=== PATIENT | female | born 2000 | race Caucasian/White ===

== ENCOUNTER 2022-03-28 09:06 | Outpatient (CLI) | payer BC, SELFPAY ==
--- OUTSIDE RECORDS SUMMARY | 2022-03-28 09:38 | XMS_ITS | Clinical Summary ---
:1998 Author Organization [employer] [facility] [place] [address] Care Team Providers Name Role Phone Nithya Paulson Primary Care Provider Allergies Active Allergy Reactions Severity Noted Date Comments Amoxicillin Hives 12/30/2012 Medications Medication Sig Dispensed Refills Start Date End Date Status hydrocortisone 2.5% Apply to affected 28 g 3 03/18/2019 Active creamIndications: area on face Xerosis cutis twice daily for 1-2 weeks at a time. Repeat as needed for flares. triamcinolone Apply to affected 80 g 3 03/18/2019 Active (ARISTOCORT; KENALOG) areas 1-2x daily 0.1 % creamIndications: for up to 2 weeks Irritant contact at a time. dermatitis, unspecified cause drospirenone-ethinyl Take 1 Tablet by 84 Tablet 0 06/04/2021 Active estradioL ([place]) mouth once daily. 3-0.03 mg tabletIndications: Menorrhagia with irregular cycle, Oral contraceptive use Active Problems Problem Noted Date Menorrhagia with irregular cycle 11/09/2015 Viral warts, unspecified 01/09/2012 Sensorineural hearing loss, bilateral 04/30/2007 Immunizations Name Administration Dates Next Due DTaP 03/15/2002, 06/14/1999, 1998, 1998, 1998 HIB HbOC (HibTITER) 10/03/1999 HIB-HepB (Comvax) 01/09/1999, 1998, 1998 Hepatitis A (Peds) 06/07/2011, 11/16/2010 Human Papilloma Virus Vaccine 02/26/2012, 09/16/2011, 2011 Inactivated Polio Vaccine 1998, 1998 Influenza A (H1N1), Inactivated 04/26/2009 Influenza Virus, Unspecified 02/01/2020, 02/22/2011, 010, 01/31/2009 Influenza, IIV3 (Age 6-35 mos) 03/20/2013 Influenza, IIV3 (Age >=3 years) 02/01/2020 Influenza, IIV4 01/23/2021, 02/02/2019, 01/30/2018, 02/07/2017, 04/24/2016, 03/24/2015, 04/04/2014 MMR 03/22/2003, 03/15/1999 Meningococcal Vaccine (Menveo) 11/21/2015, 11/16/2010 Oral Polio Vaccine 03/15/2002, 1998 Tdap 02/02/2019, 11/16/2010 Tuberculin (PPD) 10/12/2019 Varicella Vaccine 11/16/2010, 03/15/1999 Family History Medical History Relation Name Comments Good Health Father Heart Disease Maternal Grandfather related to Lyme's disease Good Health Mother Relation Name Status Comments Father Maternal Grandfather Mother Social History Tobacco Use Types Packs/Day Years Used Date Never Smoker Smokeless Tobacco: Never Used Tobacco Cessation: Counseling Given: Yes Comments: no exposure Alcohol Use Standard Drinks/Week Comments No 0 (1 standard drink = 0.6 oz pure alcoho l) Sex Assigned at Date Recorded Not on file Obstetrics History Last Filed Vital Signs Vital Sign Reading Time Taken Comments Blood Pressure 118/62 01/23/2021 1:12 PM CDT Pulse 74 01/23/2021 1:12 PM CDT Temperature 36.9 ??C (98.4 ??F) 05/12/2019 10:40 AM SPINNER HYDRAULIC Respiratory Rate 16 01/30/2018 11:44 AM CDT Oxygen Saturation 98% 05/12/2019 10:40 AM SPINNER HYDRAULIC Inhaled Oxygen Concentration - - Weight 91.2 kg (201 lb) 01/23/2021 1:12 PM CDT Height 166.4 cm (5' 5.5) 02/18/2020 10:20 AM CDT Body Mass Index 32.94 02/18/2020 10:20 AM CDT Plan of Treatment Upcoming Encounters Date Type Specialty Care Team Description 04/15/2022 Office Visit Martha Hughes PA [address], [place] [address] (Wo rk) 04/15/2022 Office Visit Nithya Styles AuD [address], [place] [address] (Wo rk) Health Maintenance Due Date Last Done Comments COVID-19 vaccine series (#1) 1998 Chlamydia for age 16-24 2014 Hepatitis C screening for age 1103/12/2016 18-79 BMI (ht and wt on same day) for 02/17/2021 02/18/2020, 03/13, age 18+ 02/02/2019, Additional history exists Depression screening for age 12+ 02/17/2021 02/18/2020, , 01/30/2018, Additional history exists Influenza for age 9-49 01/10/2022 01/23/2021, 02/01/2020, 02/01/2020, Additional history exists Pap test for age 21-65 02/17/2023 02/18/2020 Tetanus booster 02/02/2029 02/02/2019, 11/16/2010 HPV series for age 9-26 Completed 02/26/2012, 02/26/2012, 09/16/2011, Additional history exists Tdap Completed 02/02/2019, 11/16/2010 Results Not on filefrom Last 3 Months Insurance Payer Benefit Plan / Subscriber ID Effective Dates Phone Addre ss Type Group BLUE CROSS BLUE CROSS OF [id number] 2015-Present [address] [address] [place] [address] [phone] (Home) [place] [id number] Care Teams Senior Infrastructure Architect Relationship Specialty Start Date End Date Nithya Paulson PA PCP - General Physician Mobile Tester 02/18/[address] [place] [address] [place] [phone]
[2022-03-28 11:27] LABS: Albumin* 4.3 g/dL (3.3-5.0); Chloride* 108 mmol/L (96-114)
[2022-03-28 11:28] LABS: Potassium* 4.3 mmol/L (3.6-5.1); Sodium* 141 mmol/L (135-149)
[2022-03-28 11:30] LABS: Bilirubin Total* 1.5 mg/dL (0.1-1.5); Carbon Dioxide* 27 mmol/L (20-32); Cholesterol* 180 mg/dL (90-199); Creatinine* 0.9 mg/dL (0.5-1.5); Estimated Glomerular Filt Rate 92 ml/min
[2022-03-28 11:31] LABS: Alkaline Phosphatase* 71 U/L (40-150); Aspartate Amino Transferase* 19 U/L (12-35); Blood Urea Nitrogen* 13 mg/dL (5-24); Calcium* 9.2 mg/dL (8.4-10.6); Glucose* 84 mg/dL (60-115); HDL Cholesterol* 52 mg/dL (>=50); LDL Cholesterol Calculated 116 mg/dL (<100); Total Protein* 7.2 g/dL (6.0-8.3); Triglycerides* 61 mg/dL (40-149)
[2022-03-28 11:47] LABS: Alanine Aminotransferase* 12 U/L (4-35)
[2022-03-28 12:22] LABS: Vitamin B12* 247 pg/mL (243-894)
== END 2022-03-28 09:07 | disposition home or self-care (01) ==
PROVIDERS: PCP Family Medicine; Visit Provider Family Medicine
DX: Z01.419 Encounter for gynecological examination (general) (routine) without abnormal findings (principal); R10.9 Unspecified abdominal pain; E78.5 Hyperlipidemia, unspecified; E53.8 Deficiency of other specified B group vitamins
CPT/HCPCS: 80053; 80061; 82607

== ENCOUNTER 2022-05-01 15:07 | Outpatient (CLI) | payer BC, SELFPAY ==
[2022-05-01 10:39] LABS: Vitamin B12* 360 pg/mL (243-894)
== END 2022-05-01 15:08 | disposition home or self-care (01) ==
PROVIDERS: PCP Family Medicine; Visit Provider Family Medicine
DX: E53.8 Deficiency of other specified B group vitamins (principal)
CPT/HCPCS: 82607

== ENCOUNTER 2023-01-09 10:22 | Outpatient (CLI) | payer BC, SELFPAY | END 2023-01-09 10:23 | disposition home or self-care (01) | PROVIDERS: PCP Family Medicine; Visit Provider Family Medicine | DX: N92.6 Irregular menstruation, unspecified (principal); R53.83 Other fatigue | CPT/HCPCS: 82728; 84443 ==

== ENCOUNTER 2023-01-28 14:21 | Outpatient (CLI) | payer BC, SELFPAY | END 2023-01-28 14:22 | disposition home or self-care (01) | PROVIDERS: PCP Family Medicine; Visit Provider Obstetrics & Gynecology | DX: N92.6 Irregular menstruation, unspecified (principal); E53.8 Deficiency of other specified B group vitamins; E78.5 Hyperlipidemia, unspecified; R10.2 Pelvic and perineal pain | CPT/HCPCS: 82947; 83525; 84146; 84270; 84402; 84403 ==

== ENCOUNTER 2023-02-06 16:42 | Outpatient (CLI) | payer BC, SELFPAY ==
--- NOTE | 2023-02-06 17:00 | CRLHL7_ITS ---
For Patients: As a result of the Century Cures Act, medical imaging exams and procedure reports are released immediately into your electronic medical record. You may view this report before your referring provider. If you have questions, please contact your health care provider. INDICATION: Irregular menstruation COMPARISON: none TECHNIQUE: 2D norman scale and color Doppler images were acquired of the pelvis using a transabdominal and transvaginal approach. FINDINGS: Sonographic images demonstrate a normal size and smooth outer contour of the uterus. Uterus measures 6.2 cm in length by 3.1 cm in AP diameter by 3.0 cm in transverse dimension. The myometrium has a normal uniform echotexture. The endometrial lining appears normal and measures 4 mm in composite thickness. The right ovary measures 3.3 x 1.5 x 2.0 cm in size and the left ovary measures 2.3 x 1.2 x 1.9 cm. The ovaries demonstrate normal arterial and venous blood flow on color Doppler analysis. There are no suspicious fluid collections within the cul-de-sac. IMPRESSION: Normal pelvic ultrasound. Dictated by Darío Zhao MD @ 02/10/2023 9:49:16 AM (Electronically Signed)
== END 2023-02-06 16:43 | disposition home or self-care (01) ==
PROVIDERS: PCP Family Medicine; Visit Provider Obstetrics & Gynecology
DX: N92.6 Irregular menstruation, unspecified (principal); R10.2 Pelvic and perineal pain
CPT/HCPCS: 76830; 76856

== ENCOUNTER 2023-09-09 16:12 | Outpatient (CLI) | payer BC, SELFPAY ==
--- OUTSIDE RECORDS SUMMARY | 2023-09-12 11:19 | XMS_ITS | Clinical Summary ---
Author Name Unknown Organization [facility] Address [place], [place] [address] Care Team Providers Care Motor Equipment Commanding Officer Name Role Phone Nithya Paulson Primary Care Provider [phone] Allergies Active Allergy Reactions Criticality Noted Date Comments Amoxicillin Hives 12/30/2012 Medications Medication Sig Dispensed Refills Start Date End Date Status hydrocortisone 2.5% creamIndications:Xeros is cutis Apply to affected area on face twice daily for 1-2 weeks at a time. Repeat as needed for flares. 28 g 3 03/18/2019 Active triamcinolone (ARISTOCORT; KENALOG) 0.1 % creamIndications:Irrit ant contact dermatitis, unspecified cause Apply to affected areas 1-2x daily for up to 2 weeks at a time. 80 g 3 03/18/2019 Active drospirenone-ethinyl estradioL ([place]) 3-0.03 mg tabletIndications:Concetta rrhagia with irregular cycle,Oral contraceptive use Take 1 Tablet by mouth once daily. 84 Tablet 06/04/2021 Active omeprazole (PRILOSEC) 20 mg Delayed-Release capsule Take 20 mg by mouth. 03/28/2022 Active Active Problems Problem Noted Date Diagnosed Date Menorrhagia with irregular cycle 11/09/2015 Viral warts, unspecified 01/09/2012 Sensorineural hearing loss, bilateral 04/30/2007 Immunizations Name Administration Dates Next Due DTaP 03/15/2002, 0,1998,1998, 1998 HIB HbOC (HibTITER) 10/03/1999 HIB-HepB (Comvax) 01/09/1999,1998,05/15/18 99 Hepatitis A (Peds) 06/07/2011,11/16/2010 Human Papilloma Virus Vaccine 02/26/2012, 012,06/07/2011 Inactivated Polio Vaccine 1998,1998 Influenza A (H1N1), Inactivated 04/26/2009 Influenza Virus, Unspecified 02/01/2020,02/23/20 11,03/22/2010,01/31/2009 Influenza, IIV3 (Age 6-35 mos) 03/20/2013 Influenza, IIV3 (Age >=3 years) 02/01/2020 Influenza, IIV4 01/23/2021, 9,01/30/2018,02/07/2017, 04/24/2016,03/24/2015,04/04/2014 MMR 03/22/2003,03/15/1999 Meningococcal Vaccine (Menveo) 11/21/2015,2010 Oral Polio Vaccine 03/15/2002,1998 Tdap 02/02/2019,11/16/2010 Tuberculin (PPD) 10/12/2019 Varicella Vaccine 11/16/2010,03/15/1999 Family History Medical History Relation Name Comments Good Health Father Heart Disease Maternal Grandfather relate d to Lyme's disease Good Health Mother Relation Name Status Comments Father Maternal Grandfather Mother Social History Tobacco Use Types Packs/Day Years Used Date Smoking Tobacco: Never Smokeless Tobacco: Never Tobacco Cessation:Counseling Given: Yes Comments:no exposure Alcohol Use Standard Drinks/Week Comments No 0 (1 standard drink = 0.6 oz pur e alcohol) PHQ-2 Answer Date Recorded PHQ-2 TOTAL SCORE 0 02/18/2020 Social Connections Answer Date Recorded Frequency of Communication with Friends and Fami ly Not on file 05/12/2021 Financial Resource Strain Answer Date R ecorded Difficulty of Paying Living Expenses Not on file 05/12/2021 Difficulty of Paying Living Expenses Not on file 05/12/2021 Sex and Gender Information Value Date Recorded Sex Assigned at Not on file Gender Identity Not on file Sexual Orientation Not on file Obstetrics History Last Filed Vital Signs Vital Sign Reading Time Taken Comments Blood Pressure 118/62 01/23/2021 1:12 PM CDT Pulse 74 01/23/2021 1:12 PM CDT Temperature 36.9 ??C (98.4 ??F) 05/12/2019 10:[address] Respiratory Rate 16 01/30/2018 11:44 AM CDT Oxygen Saturation 98% 05/12/2019 10:40 AM WOOD REPATCHER Inhaled Oxygen Concentration - - Weight 91.2 kg (201 lb) 01/23/2021 1:12 PM CDT Height 166.4 cm (5' 5.5) 02/18/2020 10:20 AM CD T Body Mass Index 32.94 02/18/2020 10:20 AM CDT Plan of Treatment Health Maintenance Due Date Last Done Comments HIV for age 15-65 2013 Hepatitis C screening for age 18-79 2016 BMI (ht and wt on same day) for age 18+ 02/17/2021 02/18/2020, 04/06/2019, 02/02/2019, Additional history exists Depression screening for age 12+ 02/17/2021 02/18/2020, 02/02/2019, 01/30/2018, Additional history exists COVID-19 vaccine series ( season) 2023 Influenza for age 9-49 01/11/2024 , 02/01/2020, 02/01/2020, Additional history exists Pap test for age 21-65 09/17/2025 09/17/2022, 2019 Tetanus booster 02/02/2029 02/02/2019, 11/16/2010 HPV series for age 9-26 Completed 02/26/20 12, 02/26/2012, 09/16/2011, Additional history exists Tdap Completed 02/02/2019, 11/16/2010 Pneumococcal series for age 6-64 Aged Out No longer eligible based on patient's age to complete this topic Procedures Procedure Name Priority Date/Time Associated Diagnosis Comments DISTRICT MANAGER MAJOR [employer] SALES THIN PREP PAP SCREEN IMAGED Routine 09/17/2022 8:45 AM CDT from Last 3 Months or Most Recently Relevant to Health Maintenance Results * DISTRICT MANAGER MAJOR [employer] SALES THIN PREP PAP SCREEN IMAGED (09/17/2022 8:45 AM CDT) Case Report Gynecologic Cytology Report ? Case: [id number] ? Authorizing Provider: ??Jocelyn Wilson ??Collected: ? 09/17/2022 0845 ? M, MD ? Ordering Location: ? [facility] ?Received: ?09/19/20221825 ? First Screen: ?Sanaz Hernandez ? Specimen: ?DISTRICT MANAGER MAJ[employer] SALES ThinPrep Vial Screening, Cervical ? 10/22/2022 4:07 PM CDT [facility] INTERPRETATION/ RESULT NEGATIVE FOR INTRAEPITHELIAL LESION OR MALIGNANCY (NIL) (none) 10/22/2022 4:07 PM CDT [facility] IMEN ADEQUACY Satisfactory for evaluation No endocervical component seen 10/22/2022 4:07 PM CDT [facility] HPV REQUEST HPV not requested 2022 4:07 PM CDT [facility] Date of LMP 08/21/2022 10/22/2022 4:07 PM CDT [facility] Last Pap Date 02/18/2020 10/22/2022 4:07 PM CDT [facility] Last Pap Result NIL 4:07 PM CDT [facility] Abnormal Pap or [place] Bx in last 5 years No 10/22/2022 4:07 PM CDT [facility] [place] Bx Done Today No 10/22/2022 4:07 PM CDT [facility] Additional Information 10/22/2022 4:07 PM CDT [facility] Comment: Interpreted at [facility] [employer] [facility] - [address], [place] [address] Automated Review Successful 10/22/2022 4:07 PM CDT [facility] Comment:Specimen processed s uccessfully by automated parking lot laborer device, ThinPrep Imaging System, [employer] Note The pap test is a screening technique, not a diagnostic procedure. It is used primarily to screen for squamous cancers and precursor lesions. Published studies have shown that it is subject to both false negative and false positive results. The pap test should not be used as the sole means to diagnose or exclude pre-malignant and malignant lesions. 10/22/2022 4:07 PM CDT [facility] Other (Cervical) 09/17/2022 8:45 AM CDT 09/19/2022 6:26 PM CDT Jocelyn Wilson MD PATHOLOGY/ CYTOLOGY [facility] [address] [place] [address], [place] from Last 3 Months or Most Recently Relevant to Health Maintenance Care Teams Motor Equipment Commanding Officer Relationship Specialty Start Date End Date Nithya Paulson PA PCP - General Physician Right Of Way Buyer 02/18/20
== END 2023-09-09 16:13 | disposition home or self-care (01) ==
LOC: NFLDREF 09-12 11:17
PROVIDERS: PCP Family Medicine; Referring Provider Family Medicine; Visit Provider Family Medicine
DX: E78.5 Hyperlipidemia, unspecified (principal); E61.1 Iron deficiency; N94.3 Premenstrual tension syndrome; F43.9 Reaction to severe stress, unspecified; F41.9 Anxiety disorder, unspecified; K21.9 Gastro-esophageal reflux disease without esophagitis; D64.9 Anemia, unspecified; E53.8 Deficiency of other specified B group vitamins; E66.9 Obesity, unspecified
CPT/HCPCS: 80061; 82607; 82728